=== PATIENT | female | born 1975 | race Caucasian/White ===

== ENCOUNTER 2018-07-28 18:11 | Inpatient (IN) | payer MEDICAID ==
[~2018-07-28] VITALS: Ht 152.4 cm; Wt 55.9 kg
[~2018-07-28 18:11] MED LIST: FAMO-128 PO
[2018-07-28] MEDS ORDERED: normal saline 1000ML IV soln IVB ONE (18:40)
[2018-07-28] MEDS ORDERED: ondansetron/PF 4mg/2ml inj IV ONE (18:40)
[2018-07-28 19:07] LABS: BASOPHILS # (AUTO) 0.1 X10'3 (0-0.2); BASOPHILS % (AUTO) 0.4 % (0-1); EOSINOPHILS # (AUTO) 0.2 X10'3 (0-0.9); EOSINOPHILS % (AUTO) 1.8 % (0-6); HEMATOCRIT 41.9 % (35.0-45.0); HEMOGLOBIN 13.9 g/dl (12.0-16.0); LYMPHOCYTES # (AUTO) 0.9 X10'3 (1.1-4.8); LYMPHOCYTES % (AUTO) 6.8 % (21-51); MEAN CORPUSCULAR HEMOGLOBIN 30.8 PG (27.0-31.0); MEAN CORPUSCULAR HGB CONC 33.2 % (33.0-36.5); MEAN PLATELET VOLUME 9.9 FL (7.4-10.4); MONOCYTES # (AUTO) 0.5 X10'3 (0-0.9); MONOCYTES % (AUTO) 3.6 % (2-12); NEUTROPHILS % (AUTO) 87.4 % (42-75); PLATELET COUNT 197 X10'3 (140-440); RED CELL DISTRIBUTION WIDTH 14.4 % (11.5-14.5); WHITE BLOOD COUNT 13.7 X10'3 (4.5-11.0)
[2018-07-28 19:19] LABS: PARTIAL THROMBOPLASTIN TIME 24 SECONDS (22-32); PROTHROMBIN TIME 10.4 SECONDS (9.0-12.0)
[2018-07-28 19:25] LABS: ALANINE AMINOTRANSFERASE 86 U/L (12-78); ALBUMIN/GLOBULIN RATIO 0.8 (1.1-1.5); ALKALINE PHOSPHATASE 141 IU/L (46-116); ANION GAP 10 (8-16); ASPARTATE AMINO TRANSFERASE 163 U/L (10-37); BILIRUBIN,TOTAL 0.6 MG/DL (0.1-1.0); BLOOD UREA NITROGEN 7 MG/DL (7-18); CALCIUM 8.1 MG/DL (8.5-10.1); CHLORIDE 106 MMOL/L (99-107); CREATININE 0.78 MG/DL (0.40-0.90); GLUCOSE 182 MG/DL (70-104); POTASSIUM 3.7 MMOL/L (3.5-5.1); SODIUM 142 MMOL/L (135-145); TOTAL CARBON DIOXIDE 26.1 MMOL/L (24-32); TOTAL PROTEIN 6.6 G/DL (6.4-8.2); eGFR 81 ML/MIN
[2018-07-28] MEDS: morphine 4 MG/ML inj SYRINge IV PRN ×2 (19:34→21:18)
[2018-07-28 19:45] LABS: LIPASE 12717 U/L (73-393)
[2018-07-28] MEDS ORDERED: levoFLOXACIN-Levaquin 500mg/D5 100 ML IV ONE (19:55)
[2018-07-28] MEDS: ketorolac trometh. 30mg/ml inj. IV ONE ×2 (20:13→22:00)
[2018-07-28 20:27] LABS: ETHANOL < 0.010 GM/DL (0.0-0.010)
[2018-07-28 23:05] LABS: URINE HCG NEGATIVE (NEG)
[2018-07-28 23:15] LABS: CLARITY,URINE CLEAR (Clear); COLOR,URINE YELLOW (Yellow); GLUCOSE, URINE NEGATIVE (Neg); KETONES,URINE NEGATIVE (Neg); LEUKOCYTE ESTERASE ,URINE NEGATIVE (Neg); NITRITES, URINE NEGATIVE (Neg); OCCULT BLOOD,URINE NEGATIVE (Neg); PROTEIN,URINE NEGATIVE (Neg); UROBILINOGEN,URINE 0.2 E.U/dL (0.2-1.0)
[2018-07-28 23:16] LABS: UA COLLECTION TYPE VOIDED; URINE AMPHETAMINE SCREEN NEGATIVE (Neg); URINE BARBITUATE SCREEN NEGATIVE (Neg); URINE BENZODIAZEPINES SCREEN NEGATIVE (Neg); URINE CANNABINOID SCREEN NEGATIVE (Neg); URINE COCAINE SCREEN NEGATIVE (Neg); URINE METHADONE SCREEN NEGATIVE (Neg); URINE OPIATE SCREEN POSITIVE (Neg); URINE PHENCYCLIDINE SCREEN NEGATIVE (Neg)
[2018-07-29] MEDS ORDERED: diphenhydrAMINE 50 mg/ml inj IV PRN (00:15)
[2018-07-29] MEDS ORDERED: bisacodyl 10mg suppository rectal RC PRN (00:15)
[2018-07-29] MEDS ORDERED: acetaminophen 650mg rectal suppository RC PRN (00:15)
[2018-07-29] MEDS ORDERED: acetaminophen 325mg tablet PO PRN ×2 (00:15)
[2018-07-29] MEDS ORDERED: HYDROmorphone 1 mg/ml syringe IV PRN ×2 (00:15)
[2018-07-29] MEDS ORDERED: magnesium hydroxide 30ml (MOM) UD suspension PO PRN (00:15)
[2018-07-29] MEDS ORDERED: HYDROcodone/acetaminophen 5mg/325mg tablet PO PRN (00:15)
[2018-07-29] MEDS ORDERED: ondansetron/PF 4mg/2ml inj IV PRN (00:15)
[2018-07-29] MEDS ORDERED: morphine 2 MG/ML inj. syringe IV PRN ×2 (00:15)
[2018-07-29] MEDS ORDERED: metoclopramide 5 mg/ml inj IV PRN (00:15)
[2018-07-29] MEDS ORDERED: mag hydrox/Alum hydrox/simeth 30ml oral suspension PO PRN (00:15)
[2018-07-29] MEDS ORDERED: diphenhydrAMINE 25mg capsule PO PRN (00:15)
[2018-07-29] MEDS: normal saline 1000ml 1,000 ML IV SCH ×4 (01:17→23:42)
[2018-07-29 02:34] LABS: PARTIAL THROMBOPLASTIN TIME 25 SECONDS (22-32); PROTHROMBIN TIME 10.6 SECONDS (9.0-12.0)
[2018-07-29 02:44] LABS: MAGNESIUM 1.8 MG/DL (1.5-2.4); PHOSPHORUS 3.2 MG/DL (2.3-4.5)
[2018-07-29 02:50] LABS: HEMOGLOBIN A1C 5.7 % (4.5-6.2)
[2018-07-29] MEDS ORDERED: morphine 2 MG/ML inj. syringe IV ONE (04:15)
[2018-07-29] MEDS ORDERED: OMEP40CA37 PO (06:47)
[2018-07-29] MEDS ORDERED: HYDR-569 PO (06:47)
[2018-07-29] MEDS: docusate sod 100mg capsule PO SCH ×2 (07:42→20:00)
[2018-07-29] MEDS: nicotine 21mg patch - 24 hr TD SCH (08:00)
[2018-07-29] MEDS ORDERED: piperacillin-tazo 2.25gm/50ml 50 ML IV SCH (08:00)
[2018-07-29] MEDS: pantoprazole 40 MG vial IV SCH ×3 (08:55→23:39)
[2018-07-29] MEDS: metroNIDAZOLE-Flagyl 500mg/NS 100 ML IV SCH ×3 (08:55→23:39)
[2018-07-29] MEDS ORDERED: magnesium Cl slow-release 64mg tablet PO PRN (10:35)
[2018-07-29] MEDS ORDERED: magnesium 4gm in 100ml NS 100 ML IV PRN (10:35)
[2018-07-29] MEDS ORDERED: potassium Cl 40MEQ/NS 500ml 500 ML IV PRN ×2 (10:35)
[2018-07-29] MEDS ORDERED: magnesium 1gm/100ml D5W IVPB 100 ML IV PRN (10:35)
[2018-07-29] MEDS ORDERED: potassium Cl 20 mEq SR tablet PO PRN ×2 (10:35)
[2018-07-29] MEDS: HYDROmorphone 1 mg/ml syringe IV PRN ×4 (10:53→21:19)
[2018-07-29] MEDS ORDERED: PRAZ2CAP2 (13:28)
[2018-07-29] MEDS ORDERED: OLAN15TA17 (13:28)
[2018-07-29] MEDS ORDERED: LORazepam 2 mg/ml vial IV ONE (15:00)
[2018-07-29 16:06] VITALS: BP 110/44
[2018-07-29 18:00] VITALS: BP 102/56
[2018-07-29] MEDS: levoFLOXACIN-Levaquin 500mg/D5 100 ML IV SCH (20:00)
[2018-07-29] MEDS: lactobacillus rhamnosus 10,000 MMU CELLS/CAPSULE PO SCH (20:00)
[2018-07-29] MEDS ORDERED: temazepam 15mg capsule PO PRN (21:00)
[2018-07-30] VITALS: BP 105/51
[2018-07-30] MEDS: HYDROmorphone 1 mg/ml syringe IV PRN ×6 (01:54→20:57)
[2018-07-30 05:01] LABS: BASOPHILS % (AUTO) 0 % (0-1); EOSINOPHILS # (AUTO) 0.2 X10'3 (0-0.9); EOSINOPHILS % (AUTO) 0.9 % (0-6); HEMATOCRIT 38.5 % (35.0-45.0); HEMOGLOBIN 12.9 g/dl (12.0-16.0); LYMPHOCYTES # (AUTO) 1.1 X10'3 (1.1-4.8); LYMPHOCYTES % (AUTO) 5.5 % (21-51); MEAN CORPUSCULAR HGB CONC 33.6 % (33.0-36.5); MEAN CORPUSCULAR VOLUME 92.2 FL (78-98); MEAN PLATELET VOLUME 10.4 FL (7.4-10.4); MONOCYTES # (AUTO) 0.9 X10'3 (0-0.9); MONOCYTES % (AUTO) 4.6 % (2-12); NEUTROPHILS # (AUTO) 17.7 X10'3 (1.8-7.7); PLATELET COUNT 166 X10'3 (140-440); RED BLOOD COUNT 4.18 X10'6 (4.20-5.60); RED CELL DISTRIBUTION WIDTH 14.3 % (11.5-14.5); WHITE BLOOD COUNT 19.9 X10'3 (4.5-11.0)
[2018-07-30 06:01] LABS: ALANINE AMINOTRANSFERASE 33 U/L (12-78); ALBUMIN 1.9 G/DL (3.4-5.0); ALBUMIN/GLOBULIN RATIO 0.6 (1.1-1.5); ALKALINE PHOSPHATASE 87 IU/L (46-116); ANION GAP 11 (8-16); ASPARTATE AMINO TRANSFERASE 20 U/L (10-37); BILIRUBIN,TOTAL 0.5 MG/DL (0.1-1.0); BLOOD UREA NITROGEN 9 MG/DL (7-18); BUN/CREATININE RATIO 13.4 (6.6-38.0); CALCIUM 7.6 MG/DL (8.5-10.1); CHLORIDE 109 MMOL/L (99-107); CHOL/HDL RATIO 2.1 (0.00-4.99); CHOLESTEROL 118 MG/DL (0-200); CREATININE 0.67 MG/DL (0.40-0.90); GLUCOSE 104 MG/DL (70-104); HDL CHOLESTEROL 55 MG/DL (35-60); LDL CHOLESTEROL 52 MG/DL (50-100); MAGNESIUM 1.7 MG/DL (1.5-2.4); PHOSPHORUS 1.7 MG/DL (2.3-4.5); POTASSIUM 3.5 MMOL/L (3.5-5.1); SODIUM 142 MMOL/L (135-145); TOTAL CARBON DIOXIDE 22.3 MMOL/L (24-32); TOTAL PROTEIN 4.9 G/DL (6.4-8.2); TRIGLYCERIDES 20 MG/DL (20-135); eGFR > 90 ML/MIN
[2018-07-30 07:00] VITALS: BP 100/51
[2018-07-30] MEDS: nicotine 21mg patch - 24 hr TD SCH (08:00)
[2018-07-30] MEDS: docusate sod 100mg capsule PO SCH ×2 (08:07→19:57)
[2018-07-30] MEDS: pantoprazole 40 MG vial IV SCH ×2 (08:07→16:28)
[2018-07-30] MEDS: lactobacillus rhamnosus 10,000 MMU CELLS/CAPSULE PO SCH ×2 (08:07→19:57)
[2018-07-30] MEDS: metroNIDAZOLE-Flagyl 500mg/NS 100 ML IV SCH ×3 (08:08→23:35)
[2018-07-30 11:00] VITALS: BP 104/54
[2018-07-30] MEDS: normal saline 1000ml 1,000 ML IV SCH (12:49)
[2018-07-30] MEDS ORDERED: sodium phosphate inj. 30 MMOL in dextrose 5%-water 250 ML IV ONE (17:20)
[2018-07-30 19:00] VITALS: BP 122/62
[2018-07-30] MEDS: levoFLOXACIN-Levaquin 500mg/D5 100 ML IV SCH (19:57)
[2018-07-31] VITALS (18 sets, daily range): BP systolic 90–130; BP diastolic 32–77
[2018-07-31] MEDS: HYDROmorphone 1 mg/ml syringe IV PRN ×6 (00:53→21:05)
[2018-07-31] MEDS: normal saline 1000ml 1,000 ML IV SCH ×3 (02:13→16:09)
[2018-07-31 06:19] LABS: BASOPHILS % (AUTO) 0 % (0-1); EOSINOPHILS # (AUTO) 0.1 X10'3 (0-0.9); EOSINOPHILS % (AUTO) 0.3 % (0-6); HEMATOCRIT 34.7 % (35.0-45.0); HEMOGLOBIN 11.9 g/dl (12.0-16.0); LYMPHOCYTES # (AUTO) 1.4 X10'3 (1.1-4.8); LYMPHOCYTES % (AUTO) 8.1 % (21-51); MEAN CORPUSCULAR HEMOGLOBIN 31.2 PG (27.0-31.0); MEAN CORPUSCULAR HGB CONC 34.2 % (33.0-36.5); MEAN CORPUSCULAR VOLUME 91.2 FL (78-98); MEAN PLATELET VOLUME 9.9 FL (7.4-10.4); MONOCYTES # (AUTO) 0.8 X10'3 (0-0.9); MONOCYTES % (AUTO) 4.9 % (2-12); NEUTROPHILS # (AUTO) 14.5 X10'3 (1.8-7.7); NEUTROPHILS % (AUTO) 86.7 % (42-75); PLATELET COUNT 168 X10'3 (140-440); RED BLOOD COUNT 3.81 X10'6 (4.20-5.60); RED CELL DISTRIBUTION WIDTH 14.4 % (11.5-14.5); WHITE BLOOD COUNT 16.7 X10'3 (4.5-11.0)
[2018-07-31 06:52] LABS: ALANINE AMINOTRANSFERASE 19 U/L (12-78); ALBUMIN 1.7 G/DL (3.4-5.0); ALBUMIN/GLOBULIN RATIO 0.5 (1.1-1.5); ALKALINE PHOSPHATASE 89 IU/L (46-116); ANION GAP 9 (8-16); ASPARTATE AMINO TRANSFERASE 12 U/L (10-37); BILIRUBIN,TOTAL 0.5 MG/DL (0.1-1.0); BLOOD UREA NITROGEN 6 MG/DL (7-18); CALCIUM 7.4 MG/DL (8.5-10.1); CHLORIDE 105 MMOL/L (99-107); GLUCOSE 98 MG/DL (70-104); LIPASE 586 U/L (73-393); MAGNESIUM 1.6 MG/DL (1.5-2.4); PHOSPHORUS 2.9 MG/DL (2.3-4.5); SODIUM 138 MMOL/L (135-145); TOTAL CARBON DIOXIDE 23.7 MMOL/L (24-32); TOTAL PROTEIN 4.9 G/DL (6.4-8.2); eGFR > 90 ML/MIN
[2018-07-31 07:00] LABS: POTASSIUM 2.9 MMOL/L (3.5-5.1)
[2018-07-31] MEDS ORDERED: BUPIVAcaine/PF 2.5mg/ml (0.25%) 10ml vial ONE (07:20)
[2018-07-31] MEDS: pantoprazole 40 MG vial IV SCH (07:28)
[2018-07-31] MEDS: metroNIDAZOLE-Flagyl 500mg/NS 100 ML IV SCH ×2 (07:30→16:08)
[2018-07-31] MEDS: lactobacillus rhamnosus 10,000 MMU CELLS/CAPSULE PO SCH ×2 (07:31→19:41)
[2018-07-31] MEDS: docusate sod 100mg capsule PO SCH ×2 (07:31→19:41)
[2018-07-31] MEDS: nicotine 21mg patch - 24 hr TD SCH (07:43)
[2018-07-31] MEDS ORDERED: fentaNYL/PF 50MCG/1 ML 2ML syringe ONE (08:35)
[2018-07-31] MEDS ORDERED: midazolam 2 mg/2 ml injection ONE (08:36)
[2018-07-31] MEDS ORDERED: propofol inj 20 ML IV ONE (08:39)
[2018-07-31] MEDS ORDERED: rocuronium 10mg/ml inj IV ONE (08:40)
[2018-07-31] MEDS ORDERED: sevoflurane 250ml liquid IH ONE (08:41)
[2018-07-31] MEDS ORDERED: gentamicin 40 MG/1 ML inj ONE (09:19)
[2018-07-31] MEDS ORDERED: clindamycin phosphate 150mg/ml inj. ONE (09:19)
[2018-07-31] MEDS ORDERED: ondansetron/PF 4mg/2ml inj ONE (09:44)
[2018-07-31] MEDS ORDERED: dexamethasone sod phosphate 4mg/ml inj. ONE (09:44)
[2018-07-31] MEDS ORDERED: glycopyrrolate 0.2mg/ml inj ONE (09:45)
[2018-07-31] MEDS ORDERED: neostigmine methylsulfate 1 MG/ML 10ml vial ONE (09:45)
[2018-07-31] MEDS ORDERED: proCHLORperazine 10 MG/2 ml inj IV PRN (10:20)
[2018-07-31] MEDS ORDERED: meperidine/PF 25mg/ml syringe IV PRN ×3 (10:20)
[2018-07-31] MEDS ORDERED: ringers solution, lacted 1,000 ML IV SCH (10:20)
[2018-07-31] MEDS ORDERED: morphine 4 MG/ML inj SYRINge IV PRN ×2 (10:20)
[2018-07-31] MEDS ORDERED: ondansetron/PF 4mg/2ml inj IV PRN (10:20)
[2018-07-31] MEDS ORDERED: metoclopramide 5 mg/ml inj IV SCH (14:00)
[2018-07-31] MEDS: levoFLOXACIN-Levaquin 500mg/D5 100 ML IV SCH (19:41)
[2018-08-01] VITALS (7 sets, daily range): BP systolic 99–122; BP diastolic 45–72
[2018-08-01] MEDS: metroNIDAZOLE-Flagyl 500mg/NS 100 ML IV SCH ×4 (00:11→19:00)
[2018-08-01] MEDS: HYDROmorphone 1 mg/ml syringe IV PRN ×6 (00:11→20:17)
[2018-08-01] MEDS ORDERED: dextrose 5% water 500ml 500 ML IV ONE (04:50)
[2018-08-01] MEDS ORDERED: normal saline 500ml IV soln 500 ML IV ONE (04:50)
[2018-08-01] MEDS: normal saline 1000ml 1,000 ML IV SCH ×2 (05:09→20:53)
[2018-08-01 05:31] LABS: ABG BASE EXCESS -5.6 mmol/L (-2.0-3.0); ABG OXYGEN SATURATION 93.8 % (95-98); ABG PH (T) 7.397 (7.350-7.450); ABG PO2 (T) 66.7 mmHg (83-108); ALLEN'S TEST Positive; FCOHb 0.3 % (0.5-1.5); FLOW 5 L/min; FMetHb 0.3 % (0.3-1.12); FO2Hb 93.2 % (94-100); TOTAL HEMOGLOBIN 13.2 G/dl (12.0-16.0)
[2018-08-01 06:11] LABS: BASOPHILS % (AUTO) 0 % (0-1); EOSINOPHILS # (AUTO) 0.1 X10'3 (0-0.9); EOSINOPHILS % (AUTO) 0.9 % (0-6); HEMOGLOBIN 12.6 g/dl (12.0-16.0); LYMPHOCYTES # (AUTO) 0.5 X10'3 (1.1-4.8); LYMPHOCYTES % (AUTO) 3.2 % (21-51); MEAN CORPUSCULAR HEMOGLOBIN 31.1 PG (27.0-31.0); MEAN CORPUSCULAR VOLUME 91.5 FL (78-98); MEAN PLATELET VOLUME 10.5 FL (7.4-10.4); MONOCYTES # (AUTO) 0.4 X10'3 (0-0.9); MONOCYTES % (AUTO) 2.8 % (2-12); NEUTROPHILS # (AUTO) 14.5 X10'3 (1.8-7.7); NEUTROPHILS % (AUTO) 93.1 % (42-75); PLATELET COUNT 209 X10'3 (140-440); RED BLOOD COUNT 4.04 X10'6 (4.20-5.60); RED CELL DISTRIBUTION WIDTH 14.7 % (11.5-14.5); WHITE BLOOD COUNT 15.6 X10'3 (4.5-11.0)
[2018-08-01 06:22] LABS: ALANINE AMINOTRANSFERASE 21 U/L (12-78); ALBUMIN 1.9 G/DL (3.4-5.0); ALBUMIN/GLOBULIN RATIO 0.5 (1.1-1.5); ALKALINE PHOSPHATASE 99 IU/L (46-116); ANION GAP 11 (8-16); ASPARTATE AMINO TRANSFERASE 29 U/L (10-37); BILIRUBIN,TOTAL 0.4 MG/DL (0.1-1.0); BLOOD UREA NITROGEN 7 MG/DL (7-18); BUN/CREATININE RATIO 11.9 (6.6-38.0); CALCIUM 7.8 MG/DL (8.5-10.1); CHLORIDE 109 MMOL/L (99-107); CREATININE 0.59 MG/DL (0.40-0.90); GLUCOSE 109 MG/DL (70-104); LIPASE 194 U/L (73-393); MAGNESIUM 1.7 MG/DL (1.5-2.4); PHOSPHORUS 2.5 MG/DL (2.3-4.5); POTASSIUM 3.8 MMOL/L (3.5-5.1); SODIUM 141 MMOL/L (135-145); TOTAL CARBON DIOXIDE 20.6 MMOL/L (24-32); TOTAL PROTEIN 5.7 G/DL (6.4-8.2); eGFR > 90 ML/MIN
[2018-08-01] MEDS: lactobacillus rhamnosus 10,000 MMU CELLS/CAPSULE PO SCH ×2 (07:08→20:00)
[2018-08-01] MEDS: docusate sod 100mg capsule PO SCH ×2 (07:08→20:00)
[2018-08-01] MEDS: pantoprazole 40 MG vial IV SCH (07:09)
[2018-08-01] MEDS: nicotine 21mg patch - 24 hr TD SCH (07:09)
[2018-08-01] MEDS: ipratropium/albuterol 3ml nebule NEB SCH ×5 (07:10→23:21)
[2018-08-01] MEDS ORDERED: ketorolac trometh. 30mg/ml inj. IV PRN (12:35)
[2018-08-01] MEDS: metoclopramide 5 mg/ml inj IV SCH ×2 (14:15→20:16)
[2018-08-01] MEDS ORDERED: LIDOcaine 1%/PF 5ML 10 MG/ML VIAL ONE (14:49)
[2018-08-01] MEDS: levoFLOXACIN-Levaquin 500mg/D5 100 ML IV SCH (20:15)
[2018-08-02] VITALS: BP 100/62
[2018-08-02] MEDS: metroNIDAZOLE-Flagyl 500mg/NS 100 ML IV SCH ×4 (00:13→23:07)
[2018-08-02] MEDS: HYDROmorphone 1 mg/ml syringe IV PRN ×6 (00:16→23:06)
[2018-08-02] MEDS: metoclopramide 5 mg/ml inj IV SCH ×4 (01:58→21:17)
[2018-08-02] MEDS: ipratropium/albuterol 3ml nebule NEB SCH ×6 (02:45→23:11)
[2018-08-02 05:28] LABS: BASOPHILS % (AUTO) 0 % (0-1); EOSINOPHILS # (AUTO) 0.1 X10'3 (0-0.9); EOSINOPHILS % (AUTO) 0.8 % (0-6); HEMATOCRIT 30.9 % (35.0-45.0); HEMOGLOBIN 10.7 g/dl (12.0-16.0); LYMPHOCYTES # (AUTO) 1.1 X10'3 (1.1-4.8); MEAN CORPUSCULAR HEMOGLOBIN 31.3 PG (27.0-31.0); MEAN CORPUSCULAR HGB CONC 34.7 % (33.0-36.5); MEAN CORPUSCULAR VOLUME 90.2 FL (78-98); MEAN PLATELET VOLUME 9.3 FL (7.4-10.4); MONOCYTES # (AUTO) 0.8 X10'3 (0-0.9); MONOCYTES % (AUTO) 6.9 % (2-12); NEUTROPHILS % (AUTO) 83.3 % (42-75); PLATELET COUNT 216 X10'3 (140-440); RED BLOOD COUNT 3.42 X10'6 (4.20-5.60); RED CELL DISTRIBUTION WIDTH 14.4 % (11.5-14.5)
[2018-08-02 05:56] LABS: ALANINE AMINOTRANSFERASE 10 U/L (12-78); ALBUMIN 1.8 G/DL (3.4-5.0); ALBUMIN/GLOBULIN RATIO 0.6 (1.1-1.5); ALKALINE PHOSPHATASE 71 IU/L (46-116); ANION GAP 9 (8-16); ASPARTATE AMINO TRANSFERASE 13 U/L (10-37); BILIRUBIN,TOTAL 0.6 MG/DL (0.1-1.0); BLOOD UREA NITROGEN 8 MG/DL (7-18); CALCIUM 8.1 MG/DL (8.5-10.1); CHLORIDE 111 MMOL/L (99-107); CREATININE 0.57 MG/DL (0.40-0.90); GLUCOSE 116 MG/DL (70-104); MAGNESIUM 1.9 MG/DL (1.5-2.4); PHOSPHORUS 1.9 MG/DL (2.3-4.5); SODIUM 145 MMOL/L (135-145); TOTAL CARBON DIOXIDE 24.7 MMOL/L (24-32); eGFR > 90 ML/MIN
[2018-08-02 06:00] LABS: POTASSIUM 2.8 MMOL/L (3.5-5.1)
[2018-08-02] MEDS ORDERED: magnesium 4gm in 100ml NS 100 ML IV PRN (06:20)
[2018-08-02] MEDS ORDERED: magnesium Cl slow-release 64mg tablet PO PRN (06:20)
[2018-08-02] MEDS ORDERED: magnesium 1gm/100ml D5W IVPB 100 ML IV PRN ×2 (06:20→06:25)
[2018-08-02] MEDS ORDERED: potassium Cl 40MEQ/NS 500ml 500 ML IV PRN (06:20)
[2018-08-02] MEDS ORDERED: potassium Cl 20 mEq SR tablet PO PRN (06:20)
[2018-08-02 07:00] VITALS: BP 105/59
[2018-08-02] MEDS: lactobacillus rhamnosus 10,000 MMU CELLS/CAPSULE PO SCH ×2 (07:49→21:17)
[2018-08-02] MEDS: docusate sod 100mg capsule PO SCH ×2 (07:49→21:17)
[2018-08-02] MEDS: pantoprazole 40 MG vial IV SCH (07:49)
[2018-08-02] MEDS: nicotine 21mg patch - 24 hr TD SCH (08:00)
[2018-08-02] MEDS: potassium Cl 40MEQ/NS 500ml 500 ML IV PRN ×2 (08:58→14:13)
[2018-08-02 11:00] VITALS: BP 109/61
[2018-08-02 17:14] LABS: GLUCOSE,BODY FLUID 96 MG/DL; LDH,BODY FLUID 121 U/L
[2018-08-02 17:24] LABS: TOTAL PROTEIN,BODY FLUID < 2.0 G/DL
[2018-08-02 17:33] LABS: BF MESOTHELIAL CELLS FEW; BF RBC COUNT 523 /CU MM; BF WBC COUNT 170 /CU MM (0-1000); BFAPPEAR HAZY; BFCOLOR STRAW; BFVOLUME 5 ML; LYMPHOCYTES,BODY FLUID 43 %; MONOCYTES,BODY FLUID 29 %; NEUTROPHILS,BODY FLUID 28 %
[2018-08-02] MEDS: normal saline 1000ml 1,000 ML IV SCH (18:42)
[2018-08-02 20:00] VITALS: BP 117/68
[2018-08-02] MEDS: levoFLOXACIN-Levaquin 500mg/D5 100 ML IV SCH (21:17)
[2018-08-02] MEDS: heparin, porcine 5000 units/ml vial SQ SCH (21:18)
[2018-08-03] VITALS: BP 94/59
[2018-08-03] MEDS: metoclopramide 5 mg/ml inj IV SCH ×4 (02:13→19:56)
[2018-08-03] MEDS: ipratropium/albuterol 3ml nebule NEB SCH ×5 (02:53→19:24)
[2018-08-03] MEDS: HYDROmorphone 1 mg/ml syringe IV PRN (04:05)
[2018-08-03 05:25] LABS: BASOPHILS % (AUTO) 0.1 % (0-1); EOSINOPHILS % (AUTO) 0.2 % (0-6); HEMATOCRIT 31.8 % (35.0-45.0); HEMOGLOBIN 10.7 g/dl (12.0-16.0); LYMPHOCYTES # (AUTO) 1.2 X10'3 (1.1-4.8); LYMPHOCYTES % (AUTO) 7.9 % (21-51); MEAN CORPUSCULAR HEMOGLOBIN 30.7 PG (27.0-31.0); MEAN CORPUSCULAR HGB CONC 33.6 % (33.0-36.5); MEAN CORPUSCULAR VOLUME 91.2 FL (78-98); MEAN PLATELET VOLUME 9.5 FL (7.4-10.4); MONOCYTES # (AUTO) 1.3 X10'3 (0-0.9); MONOCYTES % (AUTO) 8.8 % (2-12); NEUTROPHILS # (AUTO) 12.2 X10'3 (1.8-7.7); PLATELET COUNT 215 X10'3 (140-440); RED BLOOD COUNT 3.49 X10'6 (4.20-5.60); RED CELL DISTRIBUTION WIDTH 14.4 % (11.5-14.5); WHITE BLOOD COUNT 14.8 X10'3 (4.5-11.0)
[2018-08-03 05:40] LABS: ALANINE AMINOTRANSFERASE 16 U/L (12-78); ALBUMIN 1.6 G/DL (3.4-5.0); ALBUMIN/GLOBULIN RATIO 0.5 (1.1-1.5); ALKALINE PHOSPHATASE 70 IU/L (46-116); ANION GAP 10 (8-16); ASPARTATE AMINO TRANSFERASE 13 U/L (10-37); BILIRUBIN,TOTAL 0.6 MG/DL (0.1-1.0); BLOOD UREA NITROGEN 3 MG/DL (7-18); BUN/CREATININE RATIO 6.4 (6.6-38.0); CALCIUM 7.4 MG/DL (8.5-10.1); CHLORIDE 104 MMOL/L (99-107); CREATININE 0.47 MG/DL (0.40-0.90); GLUCOSE 95 MG/DL (70-104); LACTATE DEHYDROGENASE 200 U/L (81-234); MAGNESIUM 1.6 MG/DL (1.5-2.4); PHOSPHORUS 2.7 MG/DL (2.3-4.5); POTASSIUM 3.4 MMOL/L (3.5-5.1); SODIUM 138 MMOL/L (135-145); TOTAL CARBON DIOXIDE 24.2 MMOL/L (24-32); TOTAL PROTEIN 4.8 G/DL (6.4-8.2); eGFR > 90 ML/MIN
[2018-08-03] MEDS: lactobacillus rhamnosus 10,000 MMU CELLS/CAPSULE PO SCH ×2 (07:13→19:56)
[2018-08-03] MEDS: docusate sod 100mg capsule PO SCH ×2 (07:13→19:56)
[2018-08-03] MEDS: pantoprazole 40mg Tablet.DR PO SCH (07:13)
[2018-08-03] MEDS: potassium Cl 20 mEq SR tablet PO PRN ×3 (07:14→15:54)
[2018-08-03] MEDS: metroNIDAZOLE-Flagyl 500mg/NS 100 ML IV SCH ×3 (07:14→23:47)
[2018-08-03] MEDS: HYDROcodone/acetaminophen 10/325mg tab PO PRN ×5 (07:14→23:48)
[2018-08-03] MEDS: heparin, porcine 5000 units/ml vial SQ SCH ×2 (07:15→19:56)
[2018-08-03] MEDS: nicotine 21mg patch - 24 hr TD SCH (07:16)
[2018-08-03 07:30] VITALS: BP 107/56
[2018-08-03 11:33] VITALS: BP 113/66
[2018-08-03] MEDS: normal saline 1000ml 1,000 ML IV SCH ×2 (12:23→18:41)
[2018-08-03] MEDS: levoFLOXACIN-Levaquin 500mg/D5 100 ML IV SCH (19:56)
[2018-08-03 20:00] VITALS: BP 111/58
[2018-08-04] VITALS: BP 111/69
[2018-08-04] MEDS: ipratropium/albuterol 3ml nebule NEB SCH ×7 (00:33→23:40)
[2018-08-04] MEDS: metoclopramide 5 mg/ml inj IV SCH ×4 (01:49→19:56)
[2018-08-04] MEDS: HYDROcodone/acetaminophen 10/325mg tab PO PRN ×5 (04:18→19:58)
[2018-08-04 07:00] VITALS: BP 108/52
[2018-08-04] MEDS: nicotine 21mg patch - 24 hr TD SCH (08:00)
[2018-08-04] MEDS: normal saline 1000ml 1,000 ML IV SCH ×2 (08:23→16:29)
[2018-08-04] MEDS: pantoprazole 40mg Tablet.DR PO SCH (08:23)
[2018-08-04] MEDS: docusate sod 100mg capsule PO SCH ×2 (08:25→19:51)
[2018-08-04] MEDS: lactobacillus rhamnosus 10,000 MMU CELLS/CAPSULE PO SCH ×2 (08:25→19:58)
[2018-08-04] MEDS: metroNIDAZOLE-Flagyl 500mg/NS 100 ML IV SCH ×2 (08:25→16:29)
[2018-08-04] MEDS: heparin, porcine 5000 units/ml vial SQ SCH ×2 (08:26→20:00)
[2018-08-04 10:30] VITALS: BP 115/58
[2018-08-04 13:34] VITALS: BP 118/63
[2018-08-04] MEDS: levoFLOXACIN-Levaquin 500mg/D5 100 ML IV SCH (19:55)
[2018-08-04 20:00] VITALS: BP 107/59
[2018-08-05] VITALS: BP 110/65
[2018-08-05] MEDS: metroNIDAZOLE-Flagyl 500mg/NS 100 ML IV SCH ×2 (00:08→08:01)
[2018-08-05] MEDS: HYDROcodone/acetaminophen 10/325mg tab PO PRN (00:08)
[2018-08-05] MEDS ORDERED: ipratropium/albuterol 3ml nebule NEB PRN (00:10)
[2018-08-05] MEDS: metoclopramide 5 mg/ml inj IV SCH ×2 (03:03→09:08)
[2018-08-05 06:56] VITALS: BP 118/60
[2018-08-05] MEDS: nicotine 21mg patch - 24 hr TD SCH (08:00)
[2018-08-05] MEDS: pantoprazole 40mg Tablet.DR PO SCH (08:03)
[2018-08-05] MEDS: docusate sod 100mg capsule PO SCH (08:03)
[2018-08-05] MEDS: lactobacillus rhamnosus 10,000 MMU CELLS/CAPSULE PO SCH (08:04)
[2018-08-05] MEDS: heparin, porcine 5000 units/ml vial SQ SCH (08:06)
[2018-08-05 11:00] VITALS: BP 117/67
== END 2018-08-05 11:37 | disposition home or self-care (01) | DRG 263 ==
LOC: ER 18:13 → ED HOLD 07-29 00:13 → SUR 3N 07-29 16:00 → PACU 07-31 08:33 → SUR 3N 07-31 11:09
PROVIDERS: ADMIT Family Medicine; ATTEND Internal Medicine
PROC: 0FT44ZZ Resection of Gallbladder, Percutaneous Endoscopic Approach (ICD-10-PCS; principal; 2018-07-31 08:41)
PROC: 0W9930Z Drainage of Right Pleural Cavity with Drainage Device, Percutaneous Approach (ICD-10-PCS; 2018-08-01)
DX: K80.63 Calculus of gallbladder and bile duct with acute cholecystitis with obstruction (principal); J96.91 Respiratory failure, unspecified with hypoxia; J69.0 Pneumonitis due to inhalation of food and vomit; E43 Unspecified severe protein-calorie malnutrition; J91.8 Pleural effusion in other conditions classified elsewhere; K85.10 Biliary acute pancreatitis without necrosis or infection; E83.39 Other disorders of phosphorus metabolism; K56.7 Ileus, unspecified; J98.11 Atelectasis; E86.1 Hypovolemia; D64.9 Anemia, unspecified; F41.9 Anxiety disorder, unspecified; F17.210 Nicotine dependence, cigarettes, uncomplicated; E87.6 Hypokalemia; K21.9 Gastro-esophageal reflux disease without esophagitis; K82.8 Other specified diseases of gallbladder; F32.9 Major depressive disorder, single episode, unspecified; Z88.0 Allergy status to penicillin; Z79.899 Other long term (current) drug therapy; Z68.24 Body mass index [BMI] 24.0-24.9, adult
CPT/HCPCS: 32557; 36415; 36600; 71045; 71250; 74176; 74181; 76700; 80053; 80061; 80305; 80320; 81003; 81025; 82803; 82945; 83036; 83605; 83615; 83690; 83735; 83880; 84100; 84132; 84157; 84443; 84484; 85018; 85025; 85610; 85730; 87040; 87070; 89051; 93005; 94640; 94668; 94760; 96361; 96365; 96375; 99285; A6213; A6223; A6251; A6257; A6449; A7000; C9113; J1100; J1170; J1580; J1644; J1885; J1956; J2001; J2060; J2250; J2270; J2405; J2704; J2710; J2765; J3010; J3480; J3490; J7030; J7060; J7120

== ENCOUNTER 2020-04-19 21:30 | Emergency (ER) | payer MEDICAID ==
[~2020-04-19] VITALS: Ht 152.4 cm; Wt 40.0 kg
[~2020-04-19 21:30] MED LIST changes: +HYDR-4383 PO; +OLAN15TA17; +OMEP40CA13 PO; +PRAZ2CAP2
[2020-04-19 21:42] VITALS: BP 124/82
--- NOTE | 2020-04-19 22:20 | NUR ---
Val [place] PA at bedside to evaluate pt, pt c/o difficulty swallowing x2 months, has seen PMD, pt is talking full sentences, no resp distress,
--- NOTE | 2020-04-19 22:41 | NUR ---
gave pt applesauce, she tolerates eating well, no difficulty swallowing, no choking
== END 2020-04-19 23:25 | disposition home or self-care (01) ==
LOC: ER 21:31
DX: R13.10 Dysphagia, unspecified (principal); K21.9 Gastro-esophageal reflux disease without esophagitis; F17.210 Nicotine dependence, cigarettes, uncomplicated; Z88.0 Allergy status to penicillin; Z79.899 Other long term (current) drug therapy
CPT/HCPCS: 70360; 71045; 99284

== ENCOUNTER 2025-08-16 09:50 | Outpatient (CLI) | payer MEDICAID ==
[~2025-08-16 09:50] MED LIST changes: -OLAN15TA17; +OLAN15TA97; -OMEP40CA13 PO; +OMEP40CA21 PO
--- NOTE | 2025-08-16 11:28 | RADIOLOGY REPORT ---
PROCEDURE: MR MRI LUMBAR SPINE Indication: LOW BACK PAIN, UNSPECIFIED COMPARISON: None TECHNIQUE: Multiplanar multisequence images of the the lumbar spine are obtained. FINDINGS: For the purpose of this examination, there are 5 lumbar vertebral body types counting from the lumbosacral junction. Examination is also degraded by motion. The lumbar vertebral body heights are maintained. There is moderate multilevel disc space narrowing and desiccationm. L5 pars resulting in 6 mm anterolisthesis L5 on S1. Conus terminates at the L2 level. L1-2: No disc protrusion. Mild facet and flavum hypertrophy. No spinal canal stenosis. L2-3: Tiny disc protrusion. Mild facet and flavum hypertrophy. No spinal canal, neural foraminal stenosis. L3-4: Tiny disc protrusion. Moderate facet and flavum hypertrophy. No spinal canal stenosis. Kine-ag-twuwtihq bilateral neural foraminal stenosis. L4-5: 4 mm disc protrusion. Moderate facet and flavum hypertrophy. No spinal canal stenosis. Moderate right and [id number] left neural foraminal stenosis. L5-S1: 6 mm anterolisthesis L5 on S1. No spinal canal stenosis. Severe bilateral neural foraminal stenosis. IMPRESSION: L5 pars defects resulting in 6 mm anterolisthesis of L5 upon SThere is resultant severe neural foraminal stenosis at L5-S1. Moderate lumbar degenerative disc disease. [id number] neural foraminal stenosis at L3-4, L4-5 No high-grade spinal canal stenosis.
== END 2025-08-16 23:59 | disposition home or self-care (01) ==
LOC: MRI02 09:50
PROVIDERS: ATTEND Physician Assistant
DX: M51.26 Other intervertebral disc displacement, lumbar region (principal); M47.816 Spondylosis without myelopathy or radiculopathy, lumbar region; M43.17 Spondylolisthesis, lumbosacral region; M48.07 Spinal stenosis, lumbosacral region
CPT/HCPCS: 72148